=== PATIENT | female | born 1950 | race Caucasian/White ===

== ENCOUNTER 2018-09-05 14:48 | Inpatient (IN) | payer OTHER ==
[~2018-09-05] VITALS: Ht 165.1 cm; Wt 53.5 kg
[2018-09-05 14:48] VITALS: BP_SYST 152
[2018-09-05] MEDS ORDERED: MORPHINE 4 MG/ML INJ. SYRINGE IVP ONE ×2 (16:00→16:30)
[2018-09-05 16:04] LABS: CALCIUM 9.3 mg/dL (8.4-11.0); CREATININE 0.55 mg/dL (0.55-1.30)
[2018-09-05 16:05] LABS: BASOPHILS % (AUTO) 0.2 % (0.0-2.0); HEMATOCRIT 41.7 % (36-48); HEMOGLOBIN 13.3 g/dL (12.0-16.0); LYMPHOCYTES # (AUTO) 0.7 K/uL (1.0-5.5); LYMPHOCYTES % (AUTO) 6.4 % (20.5-51.5); MEAN CORPUSCULAR HEMOGLOBIN 28 pg (27-31); MEAN CORPUSCULAR HGB CONC 32 % (32-36); MEAN CORPUSCULAR VOLUME 87 fL (79.0-98.0); MONOCYTES # (AUTO) 0.2 K/uL (0.0-1.0); MONOCYTES % (AUTO) 2.3 % (1.7-9.3); NEUTROPHILS # (AUTO) 9.9 K/uL (1.8-7.7); NEUTROPHILS % (AUTO) 91.1 % (40.0-70.0); PLATELET COUNT (AUTO) 488 K/uL (130-430); RED BLOOD CELL COUNT(AUTO) 4.78 MIL/uL (4.2-6.2); RED CELL DISTRIBUTION WIDTH 12.4 % (9.0-15.0); WHITE BLOOD COUNT (AUTO) 10.8 K/uL (4.8-10.8)
[2018-09-05 16:07] LABS: POTASSIUM 2.9 mmol/L (3.5-5.1)
[2018-09-05 16:10] LABS: ALBUMIN 3.9 g/dL (3.4-4.8); TOTAL BILIRUBIN 0.5 mg/dL (0.0-1.0)
[2018-09-05] MEDS ORDERED: POTASSIUM CHLORIDE 20 MEQ TAB.PRT.SR PO ONE (16:15)
[2018-09-05] MEDS ORDERED: ONDANSETRON HCL 4 MG/2 ML VIAL IVP ONE (16:15)
[2018-09-05] MEDS ORDERED: MORPHINE I.V. DRIP 100 ML IV PRN (17:15)
[2018-09-05] MEDS: KCL 20 mEq in D5/0.45NS 1000mL 1,000 ML IV SCH (17:16)
[2018-09-05] MEDS ORDERED: DIAZ10TA PO (17:26)
[2018-09-05] MEDS ORDERED: MORPHINE PCA 50 mg/50 mL NS IV PRN (17:30)
[2018-09-05 17:45] VITALS: BP_SYST 157
[2018-09-05] MEDS ORDERED: ACETAMINOPHEN 650 MG SUPP.RECT RC PRN (18:30)
[2018-09-05 19:00] VITALS: BP_SYST 161
[2018-09-05 19:38] LABS: PROTHROMBIN TIME 10.1 SECS (9.5-12.5)
[2018-09-05] MEDS: MORPHINE 4 MG/ML INJ. SYRINGE IVP PRN ×2 (19:54→23:56)
[2018-09-05] MEDS: ONDANSETRON HCL 4 MG/2 ML VIAL IVP PRN (19:57)
[2018-09-05 20:00] VITALS: BP_SYST 161
[2018-09-05] MEDS ORDERED: VANCOMYCIN HCL 1 GM/NS PREMIX 250 ML IV ONE (20:00)
[2018-09-05] MEDS: DIAZEPAM 5 MG TABLET (VALIUM) PO PRN (20:01)
[2018-09-05] MEDS: INSULIN REGULAR, HUMAN 100 UNITS/ML, 10 ML VIAL (novoLIN R) SUBCUT PRN (20:21)
[2018-09-05] MEDS: CEFTAROLINE FOSAMIL ACETATE 600 MG in NS 250 ML IV SCH (20:37)
[2018-09-05] MEDS: PANTOPRAZOLE SODIUM 40 MG/VIAL (PROTONIX) IVP SCH (20:38)
[2018-09-05] MEDS ORDERED: VANCOMYCIN HCL 1000 MG/VIAL IV ONE (20:40)
[2018-09-05] MEDS ORDERED: PIPERACILLIN/TAZOBACTAM 3.375 GM/VIAL (ZOSYN) IV ONE (22:13)
[2018-09-05] MEDS ORDERED: cloNIDine HCL 0.1 MG TABLET PO PRN (23:30)
[2018-09-05] MEDS: PIPERACILLIN/TAZO 3.375/DEX-IS 50 ML IV SCH (23:49)
[2018-09-06] MEDS: TEMAZEPAM 15 MG CAPSULE PO PRN ×2 (00:01→22:01)
[2018-09-06] MEDS: INSULIN REGULAR, HUMAN 100 UNITS/ML, 10 ML VIAL (novoLIN R) SUBCUT PRN ×2 (00:12→06:46)
[2018-09-06 01:00] VITALS: BP_SYST 145; BP_SYST 160
[2018-09-06] MEDS: ONDANSETRON HCL 4 MG/2 ML VIAL IVP PRN ×3 (01:48→15:04)
[2018-09-06] MEDS: DIAZEPAM 5 MG TABLET (VALIUM) PO PRN (03:52)
[2018-09-06] MEDS: MORPHINE 4 MG/ML INJ. SYRINGE IVP PRN ×3 (03:54→15:04)
[2018-09-06] MEDS: KCL 20 mEq in D5/0.45NS 1000mL 1,000 ML IV SCH ×2 (04:00→05:32)
[2018-09-06] MEDS: PIPERACILLIN/TAZO 3.375/DEX-IS 50 ML IV SCH ×2 (05:35→11:56)
[2018-09-06 06:14] LABS: BASOPHILS # (AUTO) 0.1 K/uL (0.0-0.2); BASOPHILS % (AUTO) 0.3 % (0.0-2.0); HEMATOCRIT 36.9 % (36-48); LYMPHOCYTES # (AUTO) 1.4 K/uL (1.0-5.5); MEAN CORPUSCULAR HEMOGLOBIN 28 pg (27-31); MEAN CORPUSCULAR HGB CONC 33 % (32-36); MEAN CORPUSCULAR VOLUME 87 fL (79.0-98.0); MONOCYTES # (AUTO) 1.5 K/uL (0.0-1.0); MONOCYTES % (AUTO) 8.7 % (1.7-9.3); NEUTROPHILS # (AUTO) 14.5 K/uL (1.8-7.7); PLATELET COUNT (AUTO) 474 K/uL (130-430); RED BLOOD CELL COUNT(AUTO) 4.23 MIL/uL (4.2-6.2); RED CELL DISTRIBUTION WIDTH 12.4 % (9.0-15.0); WHITE BLOOD COUNT (AUTO) 17.5 K/uL (4.8-10.8)
[2018-09-06 06:47] LABS: CALCIUM 8.9 mg/dL (8.4-11.0); CREATININE 0.57 mg/dL (0.55-1.30); POTASSIUM 3.6 mmol/L (3.5-5.1)
[2018-09-06] MEDS ORDERED: POLYETHYLENE GLYCOL 3350, 17 GM/ POWD.PACK PO ONE (07:45)
[2018-09-06 08:02] VITALS: BP_SYST 90
[2018-09-06] MEDS: PANTOPRAZOLE SODIUM 40 MG/VIAL (PROTONIX) IVP SCH ×2 (08:20→20:06)
[2018-09-06] MEDS: CEFTAROLINE FOSAMIL ACETATE 600 MG in NS 250 ML IV SCH ×2 (08:21→21:58)
[2018-09-06 12:04] VITALS: BP_SYST 113
[2018-09-06 16:02] VITALS: BP_SYST 92
[2018-09-06] MEDS: VANCOMYCIN HCL 750 MG in NS 250 ML IV SCH (17:55)
[2018-09-06] MEDS: metroNIDAZOLE 500 mg/NS 100 ML IV SCH (20:06)
[2018-09-06] MEDS: HYDROmorphone 1 MG INJ. 1 MG/ML AMPUL IVP PRN (20:06)
[2018-09-07] MEDS: HYDROmorphone 1 MG INJ. 1 MG/ML AMPUL IVP PRN ×5 (00:23→20:16)
[2018-09-07 00:45] VITALS: BP_SYST 91
[2018-09-07] MEDS: VANCOMYCIN HCL 750 MG in NS 250 ML IV SCH (05:24)
[2018-09-07] MEDS: KCL 20 mEq in D5/0.45NS 1000mL 1,000 ML IV SCH ×2 (05:25→20:16)
[2018-09-07 08:00] VITALS: BP_SYST 114
[2018-09-07] MEDS: PANTOPRAZOLE SODIUM 40 MG/VIAL (PROTONIX) IVP SCH ×2 (09:10→20:15)
[2018-09-07] MEDS: metroNIDAZOLE 500 mg/NS 100 ML IV SCH (09:10)
[2018-09-07] MEDS: CEFTAROLINE FOSAMIL ACETATE 600 MG in NS 250 ML IV SCH ×2 (10:18→20:15)
[2018-09-07 10:45] VITALS: BP_SYST 105
[2018-09-07] MEDS ORDERED: MILK OF MAGNESIA 30 ML UDC PO PRN (16:15)
[2018-09-07] MEDS ORDERED: NA PHOS,M-B/NA PHOS,DI-BA 118 ML (FLEET ENEMA) RC ONE (16:15)
[2018-09-07] MEDS: LEVOFLOXACIN 500 MG/D5W 100 ML IV SCH (16:55)
[2018-09-07] MEDS: DIAZEPAM 5 MG TABLET (VALIUM) PO PRN (16:56)
[2018-09-07 16:57] VITALS: BP_SYST 122
[2018-09-08 00:16] VITALS: BP_SYST 105
[2018-09-08 06:52] LABS: CALCIUM 9.2 mg/dL (8.4-11.0); CREATININE 0.64 mg/dL (0.55-1.30)
[2018-09-08 07:01] LABS: BASOPHILS % (AUTO) 0.6 % (0.0-2.0); EOSINOPHILS # (AUTO) 0.2 K/uL (0.0-0.4); EOSINOPHILS % (AUTO) 3.1 % (0.0-4.0); HEMATOCRIT 34.2 % (36-48); HEMOGLOBIN 11.3 g/dL (12.0-16.0); LYMPHOCYTES # (AUTO) 1.6 K/uL (1.0-5.5); LYMPHOCYTES % (AUTO) 25.2 % (20.5-51.5); MEAN CORPUSCULAR HEMOGLOBIN 29 pg (27-31); MEAN CORPUSCULAR HGB CONC 33 % (32-36); MEAN CORPUSCULAR VOLUME 88 fL (79.0-98.0); MONOCYTES # (AUTO) 0.6 K/uL (0.0-1.0); MONOCYTES % (AUTO) 9.7 % (1.7-9.3); NEUTROPHILS # (AUTO) 3.8 K/uL (1.8-7.7); NEUTROPHILS % (AUTO) 61.4 % (40.0-70.0); PLATELET COUNT (AUTO) 343 K/uL (130-430); RED BLOOD CELL COUNT(AUTO) 3.87 MIL/uL (4.2-6.2); RED CELL DISTRIBUTION WIDTH 12.4 % (9.0-15.0); WHITE BLOOD COUNT (AUTO) 6.3 K/uL (4.8-10.8)
[2018-09-08] MEDS: PANTOPRAZOLE SODIUM 40 MG/VIAL (PROTONIX) IVP SCH ×2 (08:34→21:36)
[2018-09-08] MEDS: CEFTAROLINE FOSAMIL ACETATE 600 MG in NS 250 ML IV SCH ×2 (08:34→21:36)
[2018-09-08 09:01] VITALS: BP_SYST 105
[2018-09-08] MEDS: KCL 20 mEq in D5/0.45NS 1000mL 1,000 ML IV SCH ×2 (09:43→17:00)
[2018-09-08] MEDS: HYDROmorphone 1 MG INJ. 1 MG/ML AMPUL IVP PRN (10:21)
[2018-09-08] MEDS: INSULIN REGULAR, HUMAN 100 UNITS/ML, 10 ML VIAL (novoLIN R) SUBCUT PRN ×2 (11:25→17:14)
[2018-09-08 12:02] VITALS: BP_SYST 125
[2018-09-08] MEDS ORDERED: NA PHOS,M-B/NA PHOS,DI-BA 118 ML (FLEET ENEMA) RC ONE (15:30)
[2018-09-08] MEDS: LEVOFLOXACIN 500 MG/D5W 100 ML IV SCH (15:54)
[2018-09-08 16:02] VITALS: BP_SYST 121
[2018-09-08] MEDS ORDERED: FOLIC ACID 1 MG, THIAMINE HCL 100 MG, MAGNESIUM SULFATE 1 GM, MVI 10 ML in NACL 0.9% 1,... IV ONE (19:00)
[2018-09-08] MEDS ORDERED: LOPERAMIDE HCL 2 MG CAPSULE PO SCH (19:00)
[2018-09-08 20:12] VITALS: BP_SYST 119
[2018-09-09] MEDS: KCL 20 mEq in D5/0.45NS 1000mL 1,000 ML IV SCH ×3 (02:15→23:00)
[2018-09-09] MEDS: INSULIN REGULAR, HUMAN 100 UNITS/ML, 10 ML VIAL (novoLIN R) SUBCUT PRN ×2 (06:02→12:35)
[2018-09-09 08:37] VITALS: BP_SYST 126
[2018-09-09] MEDS: CEFTAROLINE FOSAMIL ACETATE 600 MG in NS 250 ML IV SCH ×2 (08:53→20:28)
[2018-09-09] MEDS: PANTOPRAZOLE SODIUM 40 MG/VIAL (PROTONIX) IVP SCH ×2 (08:53→20:28)
[2018-09-09] MEDS: HYDROmorphone 1 MG INJ. 1 MG/ML AMPUL IVP PRN ×2 (08:56→15:38)
[2018-09-09 11:11] VITALS: BP_SYST 99
[2018-09-09 15:34] VITALS: BP_SYST 101
[2018-09-09] MEDS: LEVOFLOXACIN 500 MG/D5W 100 ML IV SCH (15:38)
[2018-09-09] MEDS: DIAZEPAM 5 MG TABLET (VALIUM) PO PRN (15:39)
[2018-09-09] MEDS: BALSAM PERU/CASTOR OIL 60 GM OINT...G. TP SCH (15:42)
[2018-09-09 19:50] VITALS: BP_SYST 117
[2018-09-10 07:03] LABS: BASOPHILS % (AUTO) 0.4 % (0.0-2.0); EOSINOPHILS # (AUTO) 0.2 K/uL (0.0-0.4); HEMATOCRIT 32.3 % (36-48); HEMOGLOBIN 10.6 g/dL (12.0-16.0); LYMPHOCYTES # (AUTO) 1.3 K/uL (1.0-5.5); LYMPHOCYTES % (AUTO) 21.8 % (20.5-51.5); MEAN CORPUSCULAR HEMOGLOBIN 28 pg (27-31); MEAN CORPUSCULAR HGB CONC 33 % (32-36); MEAN CORPUSCULAR VOLUME 87 fL (79.0-98.0); MONOCYTES # (AUTO) 0.5 K/uL (0.0-1.0); MONOCYTES % (AUTO) 8.5 % (1.7-9.3); NEUTROPHILS # (AUTO) 4.2 K/uL (1.8-7.7); NEUTROPHILS % (AUTO) 65.3 % (40.0-70.0); PLATELET COUNT (AUTO) 309 K/uL (130-430); RED BLOOD CELL COUNT(AUTO) 3.72 MIL/uL (4.2-6.2); RED CELL DISTRIBUTION WIDTH 12.5 % (9.0-15.0); WHITE BLOOD COUNT (AUTO) 6.2 K/uL (4.8-10.8)
[2018-09-10 07:07] LABS: CALCIUM 9.1 mg/dL (8.4-11.0); CREATININE 0.48 mg/dL (0.55-1.30); POTASSIUM 3.7 mmol/L (3.5-5.1)
[2018-09-10 08:00] VITALS: BP_SYST 100
[2018-09-10] MEDS: PANTOPRAZOLE SODIUM 40 MG/VIAL (PROTONIX) IVP SCH (09:00)
[2018-09-10] MEDS: BALSAM PERU/CASTOR OIL 60 GM OINT...G. TP SCH (09:00)
[2018-09-10] MEDS: KCL 20 mEq in D5/0.45NS 1000mL 1,000 ML IV SCH (09:00)
[2018-09-10 11:34] VITALS: BP_SYST 116
[2018-09-10] MEDS ORDERED: VANCOMYCIN HCL 500 MG in NS 100 ML IV SCH (13:00)
[2018-09-10 14:16] VITALS: BP_SYST 107
[2018-09-10 15:36] VITALS: BP_SYST 107
[2018-09-10] MEDS ORDERED: LEVOFLOXACIN 500 MG TABLET PO SCH (16:00)
[2018-09-10] MEDS ORDERED: LEVO750T45 PO (19:19)
[2018-09-10] MEDS ORDERED: HYDR-2489 PO (19:22)
[2018-09-10] MEDS ORDERED: SULF1TAB48 PO (19:23)
[2018-09-10] MEDS ORDERED: DIAZ10TA PO (19:23)
== END 2018-09-10 20:26 | disposition home or self-care (01) | DRG 872 ==
LOC: SED 14:48 → STU 16:32 → SMU 09-08 20:47
PROVIDERS: ADMIT Family Medicine; ATTEND Family Medicine
DX: A41.9 Sepsis, unspecified organism (principal); K92.2 Gastrointestinal hemorrhage, unspecified; C79.51 Secondary malignant neoplasm of bone; E44.0 Moderate protein-calorie malnutrition; C50.911 Malignant neoplasm of unspecified site of right female breast; E11.9 Type 2 diabetes mellitus without complications; F41.9 Anxiety disorder, unspecified; K59.09 Other constipation; J44.9 Chronic obstructive pulmonary disease, unspecified; I10 Essential (primary) hypertension; B96.5 Pseudomonas (aeruginosa) (mallei) (pseudomallei) as the cause of diseases classified elsewhere; Z53.20 Procedure and treatment not carried out because of patient's decision for unspecified reasons
CPT/HCPCS: 36415; 74018; 80048; 80053; 82962; 83735-TC; 85025; 85610-TC; 85730-TC; 86300; 87040-TC; 87070-TC; 87075-TC; 87081; 87186-TC; 93005; 96374; 96375; 96376; 99285; C9113; G0378; J0712; J1170; J1815; J1956; J2270; J2405; J2543; J3370; J3411; J3475; J3490; J7030; J7050; J7060